=== PATIENT | male | born 2000 | race Caucasian/White ===

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

== ENCOUNTER 2021-01-09 19:50 | Emergency (ER) | payer MEDICAID ==
[2021-01-09] MEDS ORDERED: Dexamethasone 4 mg/ml Vial ONE (20:13)
== END 2021-01-09 20:34 | disposition home or self-care (01) ==
LOC: NAV ERS 19:50
DX: T78.40XA Allergy, unspecified, initial encounter (principal); J45.909 Unspecified asthma, uncomplicated; F17.290 Nicotine dependence, other tobacco product, uncomplicated
CPT/HCPCS: 96372; 99283; J1100